=== PATIENT | female | born 1960 | race African-American/Black ===

== ENCOUNTER 2022-09-29 09:39 | Emergency (ER) | payer BC ==
[2022-09-29 09:51] VITALS: BP 150/85; PULSE 82; RESP 16; TEMP 98.1; BMI 34.9
[2022-09-29] MEDS ORDERED: LIDOCAINE 5% TOPICAL PATCH TP ONE (11:34)
[2022-09-29] MEDS ORDERED: IBUPROFEN 600 MG TABLET (FP) PO ONE ×2 (11:34→11:36)
[2022-09-29] MEDS ORDERED: LIDOCAINE 5% TOPICAL PATCH ONE (11:36)
[2022-09-29] MEDS ORDERED: LIDOCAINE PATCH REMOVAL MC SCH (22:00)
== END 2022-09-29 11:41 | disposition home or self-care (01) ==
LOC: JERFT 09:39
DX: J06.9 Acute upper respiratory infection, unspecified (principal); M54.6 Pain in thoracic spine; M54.2 Cervicalgia; Z20.822 Contact with and (suspected) exposure to COVID-19
CPT/HCPCS: 0241U-QW; 99283-25